=== PATIENT | female | born 1960 | race African-American/Black ===

== ENCOUNTER 2019-05-06 20:25 | Emergency (ER) | payer OTHER ==
[2019-05-06] MEDS ORDERED: Ibuprofen 200 MG TAB ONE (20:42)
--- NOTE | 2019-05-07 07:16 | RAD ---
LEFT SHOULDER 3 VIEWS: Date: 05/06/19 No fracture, dislocation, or AC joint widening seen. There is some bony spurring at the AC joint. IMPRESSION: No acute findings. POS: HOME
--- NOTE | 2019-05-07 07:17 | RAD ---
PELVIS 1 VIEW: Date 05/06/19 No acute fracture seen. Hips appear intact. Symphysis shows no widening or offset. SI joints are symm etrical. A bony protrusion from the lateral aspect of the right iliac bone is probably related to old injury. IMPRESSION: No acute findings. POS: HOME
== END 2019-05-06 21:04 | disposition home or self-care (01) ==
LOC: BURERS 20:25
DX: S46.912A Strain of unspecified muscle, fascia and tendon at shoulder and upper arm level, left arm, initial encounter (principal); S39.012A Strain of muscle, fascia and tendon of lower back, initial encounter; F17.210 Nicotine dependence, cigarettes, uncomplicated; W01.0XXA Fall on same level from slipping, tripping and stumbling without subsequent striking against object, initial encounter
CPT/HCPCS: 72170

== ENCOUNTER 2025-08-05 10:46 | Emergency (ER) | payer OTHER, SELFPAY ==
[2025-08-05 11:43] LABS: INR-International Normal Ratio 1.0; Prothrombin Time 13.3 sec (12.0-14.7)
[2025-08-05 11:44] LABS: PTT 34.6 sec (22.9-36.1)
[2025-08-05 11:46] LABS: Hematocrit 49.4 % (36.0-47.0); Hemoglobin 16.0 g/dL (12.0-16.0); MDiff Complete? YES; Mean Corpuscular Hemoglobin 25.1 pg (27.0-31.0); Mean Corpuscular Volume 77.6 fl (78.0-98.0); Platelet Count 353 10x3/uL (130-400); Red Blood Cell (RBC) Count 6.37 mill/uL (4.20-5.40); White Blood Cell (WBC) Count 9.6 10x3/uL (4.8-10.8)
[2025-08-05 11:52] LABS: ALT (SGPT) 15 U/L (Less than 34); AST (SGOT) 19 U/L (11-34); Albumin 4.1 g/dL (3.1-4.5); Alkaline Phosphatase 68 U/L (40-110); Anion Gap 14 mmol/L (10-20); BUN (Urea Nitrogen) 12 mg/dL (9.8-20.1); Bilirubin, Total 0.5 mg/dL (0.3-1.2); Calc. Creatinine Clearance 0 mL/min (70-130); Calcium 9.5 mg/dL (7.8-10.44); Carbon Dioxide 25 mmol/L (23-31); Chloride 108 mmol/L (98-107); Globulin 3.9 g/dL (2.4-3.5); Glucose 98 mg/dL (80-115); Potassium 3.9 mmol/L (3.5-5.1); Sodium 143 mmol/L (136-145); Troponin I 0.019 ng/mL (< 0.028)
[2025-08-05] MEDS ORDERED: Aspirin 325 MG TAB ONE (12:14)
[2025-08-05 12:45] LABS: Glucose, Urine (Dipstick) Negative (Negative); Leukocyte Negative (Negative); Protein, Urine (Dipstick) Negative (Neg-Trace); Specific Gravity, Urine 1.015 (1.005-1.030)
[2025-08-05 12:54] LABS: Bacteria/HPF 1+ HPF (None Seen); CAUTI Indications for Culture Dysuria,urgency,freq; RBC/HPF 0-3 HPF (0-3); Urine Culture Reflex No No; WBC/HPF 0-3 HPF (0-3)
== END 2025-08-05 15:45 | disposition short-term general hospital (02) ==
LOC: BURERS 10:46
DX: H53.8 Other visual disturbances (principal); I10 Essential (primary) hypertension; F17.210 Nicotine dependence, cigarettes, uncomplicated
CPT/HCPCS: 36416; 70450; 70496; 70498; 71045; 80053; 81001; 84484; 85025; 85610; 85730; 93005; 94760